=== PATIENT | male | born 1970 | race Caucasian/White ===

== ENCOUNTER 2023-03-14 15:23 | Outpatient (CLI) | payer BC ==
[2023-03-14 16:16] LABS: Anion Gap 16 mmol/L (10-20); BUN (Urea Nitrogen) 9 mg/dL (8.9-20.6); Calc. Creatinine Clearance 0 mL/min (70-130); Calcium 9.2 mg/dL (7.8-10.44); Carbon Dioxide 21 mmol/L (22-29); Chloride 110 mmol/L (98-107); Estimated GFR 78; Glucose 80 mg/dL (70-105); Potassium 4.4 mmol/L (3.5-5.1); Sodium 143 mmol/L (136-145)
[2023-03-14 16:35] LABS: #Eosinphils 0.2 10x3/uL (0.0-0.5); #Monocytes 0.7 10x3/uL (0.0-1.1); #Neutrophils 4.5 10x3/uL (1.5-8.4); %Basophils 0.5 % (0.0-2.0); %Eosinophils 2.1 % (0.0-6.0); %Lymphocytes 37.5 % (18.0-47.0); %Monocytes 7.6 % (0.0-10.0); Hematocrit 48.1 % (38.8-50.0); Hemoglobin 17.1 g/dL (13.5-17.5); Mean Corpuscular HGB CONC 35.6 g/dL (32.0-36.0); Mean Corpuscular Volume 90.1 fl (81.2-95.1); Mean Platelet Volume 9.4 fl (7.4-10.4); Platelet Count 329 10x3/uL (150-450); RBC Distribution Width 11.9 % (11.5-14.5); Red Blood Cell (RBC) Count 5.34 10x6/uL (4.32-5.72); White Blood Cell (WBC) Count 8.6 10x3/uL (3.5-10.5)
== END 2023-03-14 15:24 | disposition home or self-care (01) ==
LOC: LABBT 15:23
PROVIDERS: ATTEND Specialist
DX: Z01.812 Encounter for preprocedural laboratory examination (principal); L05.91 Pilonidal cyst without abscess
CPT/HCPCS: 80048; 85025

== ENCOUNTER 2023-03-20 06:28 | Day surgery (SDC) | payer BC ==
[2023-03-14 15:42] VITALS: BMI 31.1
[2023-03-20] MEDS ORDERED: fentaNYL PF 100 MCG/2 ML SYRINGE ONE (06:39)
[2023-03-20] MEDS ORDERED: Sevoflurane 250 ML INH ANEST BOTTLE ONE (06:49)
[2023-03-20] MEDS ORDERED: Sodium Chloride 0.9% 100 ML ONE (07:06)
[2023-03-20] MEDS ORDERED: CEFAZOLIN 2 GM VIAL ONE (07:06)
[2023-03-20] MEDS ORDERED: Acetaminophen 500 MG TAB ONE (07:06)
[2023-03-20] MEDS ORDERED: Ketorolac Tromethamine 30 MG/ML VIAL ONE (07:06)
[2023-03-20] MEDS ORDERED: Maxitrol 0.1% Opth Oint 3.5 GM TUBE ONE (07:07)
[2023-03-20] MEDS ORDERED: Bupivacaine 0.25% HCL 30 ML VIAL ONE (07:07)
[2023-03-20] MEDS ORDERED: Methylene Blue 50 MG/10 ML AMPUL ONE (07:07)
[2023-03-20] MEDS ORDERED: EPINEPHrine 1 MG/ML AMP ONE (07:07)
[2023-03-20] MEDS ORDERED: Lidocaine 1% PF 5 ML VIAL ONE (07:44)
[2023-03-20] MEDS ORDERED: Rocuronium Bromide 10 MG/ML (10ML VIAL) ONE (07:44)
[2023-03-20] MEDS ORDERED: Glycopyrrolate 0.2 MG/ML 5 ML SYRINGE ONE (07:44)
[2023-03-20] MEDS ORDERED: Ondansetron PF 4 MG/2 ML Vial ONE (07:44)
[2023-03-20] MEDS ORDERED: NEOSTIGMINE 3 MG/3 ML SYR 3 MG/3 ML SYRINGE ONE (07:44)
[2023-03-20] MEDS ORDERED: Dexamethasone 20 MG/5 ML VIAL ONE (07:44)
[2023-03-20] MEDS ORDERED: PROPOFOL 200 MG/20 ML VIAL ONE (07:44)
== END 2023-03-20 10:30 | disposition home or self-care (01) ==
LOC: SDC 06:28
PROVIDERS: ATTEND Specialist
PROC: 0HB8XZZ Excision of Buttock Skin, External Approach (ICD-10-PCS; principal; 2023-03-20)
DX: L05.92 Pilonidal sinus without abscess (principal); Z88.0 Allergy status to penicillin; Z98.890 Other specified postprocedural states
CPT/HCPCS: 88304; J0171; J1100; J1885; J2405; J2704; J3490; Q9968; S0020

== ENCOUNTER 2023-10-31 20:22 | Emergency (ER) | payer BC ==
[~2023-10-31 20:22] MED LIST: Iopamidol-370 76% 500 ML MDV (1 ML CHARGE) ONE
[2023-10-31] MEDS ORDERED: Ondansetron PF 4 MG/2 ML Vial ONE (20:51)
[2023-10-31] MEDS ORDERED: Ketorolac Tromethamine 30 MG (1 mL) VIAL ONE (20:51)
[2023-10-31 21:10] LABS: #Basophils 0.03 10x3/uL (0.0-0.2); %Basophils 0.2 % (0.0-1.0); %Eosinophils 0.8 % (0.0-10.0); %Lymphocytes 17.1 % (21.0-51.0); %Monocytes 7.1 % (0.0-10.0); %Neutrophils 74.5 % (42.0-75.0); Hematocrit 48.3 % (42.0-52.0); Hemoglobin 16.8 g/dL (14.0-18.0); Mean Corpuscular HGB CONC 34.8 g/dL (32.0-36.0); Mean Corpuscular Hemoglobin 32.2 pg (27.0-31.0); Mean Corpuscular Volume 92.5 fL (78.0-98.0); Platelet Count 335 10x3/uL (130-400); RBC Distribution Width 12.5 % (11.5-14.5); Red Blood Cell (RBC) Count 5.22 mill/uL (4.70-6.10)
[2023-10-31 21:12] LABS: Bilirubin Negative (Negative); Blood, Urine 3+ (Negative); CAUTI Indications for Culture Pelvic or flank pain; Calcium Oxalate Crystals 4+ HPF (None Seen); Clarity Turbid (Clear); Glucose, Urine (Dipstick) Normal (Negative); Ketone, Urine Negative (Negative); Leukocyte Negative Leu/uL (Negative); Nitrite Negative (Negative); Protein, Urine (Dipstick) 30 mg/dL (Neg-Trace); RBC/HPF Greater than 50 HPF (0-3); Specific Gravity, Urine 1.024 (1.002-1.036); Squamous Epithelial None Seen HPF (0-3); Urobilinogen Normal mg/dL (Less than 2); WBC/HPF 0-3 HPF (0-3); Yeast-Budding 2+ HPF (None Seen); pH, Urine 5.5 (5.0-9.0)
[2023-10-31 21:13] LABS: Bacteria/HPF 1+ HPF (None Seen)
[2023-10-31 21:14] LABS: Urine Culture Reflex No No
[2023-10-31 22:03] LABS: ALT (SGPT) 42 U/L (8-55); AST (SGOT) 25 U/L (5-34); Albumin 4.1 g/dL (3.5-5.0); Alkaline Phosphatase 77 U/L (40-110); Anion Gap 18 mmol/L (10-20); BUN (Urea Nitrogen) 9 mg/dL (8.4-25.7); Bilirubin, Total 1.7 mg/dL (0.2-1.2); Calc. Creatinine Clearance 0 mL/min (70-130); Calcium 9.5 mg/dL (7.8-10.44); Carbon Dioxide 20 mmol/L (22-29); Chloride 106 mmol/L (98-107); Estimated GFR 60; Globulin 3.5 g/dL (2.4-3.5); Glucose 111 mg/dL (70-105); Potassium 4.4 mmol/L (3.5-5.1); Protein, Total 7.6 g/dL (6.0-8.3); Sodium 140 mmol/L (136-145)
== END 2023-10-31 23:25 | disposition home or self-care (01) ==
LOC: ERS 20:22
DX: N13.2 Hydronephrosis with renal and ureteral calculous obstruction (principal)
CPT/HCPCS: 74177; 80053; 81001; 85025; 96374; 96375; J1885; J2405; Q9967